=== PATIENT | female | born 1960 | race Two or more races ===

== ENCOUNTER → 2018-09-02 | Outpatient (CLI) | payer OTHER ==
[2018-09-02 09:18] LABS: Urine WBC None Seen /hpf (0 - 5)
[2018-09-02 10:03] LABS: Urine Bacteria NONE SEEN /hpf (None Seen); Urine Blood Negative /uL (Negative); Urine Specific Gravity 1.003 (1.001-1.035)
[2018-09-02 10:04] LABS: Basophils # (auto) 0 uL; Basophils % (auto) 1.1 % (0.0-2.0); Eosinophils # (auto) 0.1 uL; Eosinophils % (auto) 1.8 % (0.0-7.0); Hemoglobin 12.7 g/dL (12.2-16.2); Lymphocytes # (auto) 1.5 uL; Mean Corpuscular Hemoglobin 30.3 pg (28.0-32.0); Mean Corpuscular Hgb Conc. 33.4 g/dL (32.0-36.0); Mean Corpuscular Volume 90.8 fL (80.0-100.0); Monocytes # (auto) 0.2 uL; Monocytes % (auto) 6.2 % (0.0-12.0); Neutrophils # (auto) 1.7 uL; Neutrophils % (auto) 47.9 % (37.0-80.0); Nucleated Red Blood Cells % 0.1 %; Platelet Count (auto) 152 10^3/uL (140-450); Red Blood Cells 4.18 10^6/uL (4.0-5.20); Red Cell Distribution Width 14.3 % (11.8-14.3); White Blood Cell 3.5 10^3/uL (4.4-10.8)
[2018-09-02 10:43] LABS: Albumin 3.7 g/dL (3.4-5.0); Calcium 8.8 mg/dL (8.5-10.1); Potassium 3.7 mmol/L (3.5-5.1)
[2018-09-02 10:49] LABS: BUN/Creatinine Ratio 22.4; Bilirubin, Total 0.5 mg/dL (0.2-1.0); Total Protein 7.3 g/dL (6.4-8.2)
== END | disposition home or self-care (01) ==
LOC: LAB 09:04
PROVIDERS: ATTEND Internal Medicine Nephrology
DX: Z00.00 Encounter for general adult medical examination without abnormal findings (principal)
CPT/HCPCS: 36415; 80053; 80061; 81001; 84443; 85025

== ENCOUNTER → 2021-04-02 | Outpatient (CLI) | payer OTHER ==
[2021-04-02 10:06] LABS: Urine Bacteria NONE SEEN /hpf (None Seen); Urine Blood Negative /uL (Negative); Urine Mucus FEW (None Seen); Urine Specific Gravity 1.019 (1.001-1.035); Urine WBC <1 /hpf (0 - 5)
[2021-04-02 10:07] LABS: Basophils # (auto) 0 10 ^3/uL (0-0.2); Basophils % (auto) 0.7 % (0.0-2.0); Eosinophils # (auto) 0.1 10 ^3/uL (0-0.8); Eosinophils % (auto) 1.8 % (0.0-7.0); Hematocrit 37.4 % (36.0-46.0); Hemoglobin 12.5 g/dL (12.2-16.2); Lymphocytes # (auto) 1.4 10 ^3/uL (0.4-5.4); Mean Corpuscular Hemoglobin 30.6 pg (28.0-32.0); Mean Corpuscular Hgb Conc. 33.5 g/dL (32.0-36.0); Mean Corpuscular Volume 91.4 fL (80.0-100.0); Monocytes # (auto) 0.2 10 ^3/uL (0-1.3); Monocytes % (auto) 6.1 % (0.0-12.0); Neutrophils # (auto) 1.8 10 ^3/uL (1.6-8.6); Neutrophils % (auto) 51.4 % (37.0-80.0); Nucleated Red Blood Cells % 0.2 %; Red Blood Cells 4.09 10^6/uL (4.0-5.20); Red Cell Distribution Width 13.6 % (11.8-14.3); White Blood Cell 3.5 10^3/uL (4.4-10.8)
[2021-04-02 12:26] LABS: Albumin 3.8 g/dL (3.4-5.0); Potassium 4.1 mmol/L (3.5-5.1)
[2021-04-02 12:32] LABS: BUN/Creatinine Ratio 17.6; Bilirubin, Total 0.3 mg/dL (0.2-1.0); Total Protein 7.5 g/dL (6.4-8.2)
== END | disposition home or self-care (01) ==
LOC: LAB 08:30
PROVIDERS: ATTEND Internal Medicine
DX: I08.2 Rheumatic disorders of both aortic and tricuspid valves (principal); I11.9 Hypertensive heart disease without heart failure; E78.5 Hyperlipidemia, unspecified; M79.89 Other specified soft tissue disorders
CPT/HCPCS: 36415; 80053; 80061; 81001; 82270; 84443; 85025; 85379; 85652; 93306

== ENCOUNTER → 2021-04-19 | Outpatient (CLI) | payer OTHER ==
[2021-04-19 10:21] LABS: Basophils # (auto) 0 10 ^3/uL (0-0.2); Eosinophils # (auto) 0.1 10 ^3/uL (0-0.8); Eosinophils % (auto) 1.6 % (0.0-7.0); Hematocrit 35.6 % (36.0-46.0); Hemoglobin 12.1 g/dL (12.2-16.2); Lymphocytes # (auto) 1.6 10 ^3/uL (0.4-5.4); Lymphocytes % (auto) 40.8 % (10.0-50.0); Mean Corpuscular Hemoglobin 30.7 pg (28.0-32.0); Mean Corpuscular Hgb Conc. 33.9 g/dL (32.0-36.0); Mean Corpuscular Volume 90.4 fL (80.0-100.0); Monocytes # (auto) 0.2 10 ^3/uL (0-1.3); Monocytes % (auto) 5.8 % (0.0-12.0); Neutrophils % (auto) 50.8 % (37.0-80.0); Red Blood Cells 3.94 10^6/uL (4.0-5.20); Red Cell Distribution Width 13.7 % (11.8-14.3); White Blood Cell 3.9 10^3/uL (4.4-10.8)
== END | disposition home or self-care (01) ==
LOC: LAB 08:14
PROVIDERS: ATTEND Internal Medicine
DX: D72.819 Decreased white blood cell count, unspecified (principal)
CPT/HCPCS: 36415; 85025

== ENCOUNTER → 2021-05-03 | Outpatient (CLI) | payer OTHER | END | disposition home or self-care (01) | LOC: XY 07:35 | PROVIDERS: ATTEND Internal Medicine | DX: M89.8X9 Other specified disorders of bone, unspecified site (principal); Z85.118 Personal history of other malignant neoplasm of bronchus and lung | CPT/HCPCS: 78306; A9503 ==

== ENCOUNTER → 2021-08-28 | Outpatient (CLI) | payer OTHER ==
[2021-08-28 10:13] LABS: Basophils # (auto) 0 10 ^3/uL (0-0.2); Basophils % (auto) 0.7 % (0.0-2.0); Eosinophils # (auto) 0.1 10 ^3/uL (0-0.8); Eosinophils % (auto) 2.1 % (0.0-7.0); Hematocrit 35.6 % (36.0-46.0); Lymphocytes # (auto) 1.9 10 ^3/uL (0.4-5.4); Lymphocytes % (auto) 43.8 % (10.0-50.0); Mean Corpuscular Hemoglobin 30.9 pg (28.0-32.0); Mean Corpuscular Hgb Conc. 33.7 g/dL (32.0-36.0); Mean Corpuscular Volume 91.8 fL (80.0-100.0); Monocytes # (auto) 0.3 10 ^3/uL (0-1.3); Monocytes % (auto) 6.8 % (0.0-12.0); Neutrophils % (auto) 46.6 % (37.0-80.0); Nucleated Red Blood Cells % 0.2 %; Red Blood Cells 3.88 10^6/uL (4.0-5.20); Red Cell Distribution Width 13.7 % (11.8-14.3); White Blood Cell 4.2 10^3/uL (4.4-10.8)
== END | disposition home or self-care (01) ==
LOC: LAB 09:18
PROVIDERS: ATTEND Internal Medicine
DX: M81.0 Age-related osteoporosis without current pathological fracture (principal); D72.89 Other specified disorders of white blood cells
CPT/HCPCS: 36415; 85025; 85652

== ENCOUNTER → 2021-11-27 | Outpatient (CLI) | payer OTHER ==
[~2021-11-27] VITALS: Ht 154.9 cm; Wt 50.8 kg
[~2021-11-27] MED LIST: ADENOSINE 43 MG in GIVE UN-DILUTED 0 ML IV STA
[2021-11-27 09:22] VITALS: BP 117/71
== END | disposition home or self-care (01) ==
LOC: XY 08:12
PROVIDERS: ATTEND Internal Medicine
DX: R00.2 Palpitations (principal); R07.9 Chest pain, unspecified; R06.02 Shortness of breath; R55 Syncope and collapse
CPT/HCPCS: 78452; 93017; A9500; J0153

== ENCOUNTER → 2021-11-29 | Outpatient (CLI) | payer OTHER ==
[2021-11-29 08:58] LABS: Basophils # (auto) 0 10 ^3/uL (0-0.2); Basophils % (auto) 1.1 % (0.0-2.0); Eosinophils # (auto) 0.1 10 ^3/uL (0-0.8); Eosinophils % (auto) 2.7 % (0.0-7.0); Hematocrit 37.3 % (36.0-46.0); Hemoglobin 12.4 g/dL (12.2-16.2); Lymphocytes # (auto) 1.5 10 ^3/uL (0.4-5.4); Lymphocytes % (auto) 32.1 % (10.0-50.0); Mean Corpuscular Hemoglobin 30.1 pg (28.0-32.0); Mean Corpuscular Hgb Conc. 33.1 g/dL (32.0-36.0); Mean Corpuscular Volume 90.9 fL (80.0-100.0); Monocytes # (auto) 0.3 10 ^3/uL (0-1.3); Monocytes % (auto) 6.6 % (0.0-12.0); Neutrophils # (auto) 2.6 10 ^3/uL (1.6-8.6); Neutrophils % (auto) 57.5 % (37.0-80.0); Nucleated Red Blood Cells % 0.1 %; White Blood Cell 4.6 10^3/uL (4.4-10.8)
== END | disposition home or self-care (01) ==
LOC: LAB 08:47
PROVIDERS: ATTEND Internal Medicine
DX: M81.0 Age-related osteoporosis without current pathological fracture (principal); M79.644 Pain in right finger(s)
CPT/HCPCS: 36415; 84550; 85025; 86038; 86431

== ENCOUNTER → 2022-04-16 | Outpatient (CLI) | payer OTHER ==
[2022-04-16 09:42] LABS: Urine Bacteria NONE SEEN /hpf (None Seen); Urine Blood Negative /uL (Negative); Urine Specific Gravity 1.003 (1.001-1.035); Urine WBC <1 /hpf (0 - 5)
== END | disposition home or self-care (01) ==
LOC: LAB 09:23
PROVIDERS: ATTEND Internal Medicine
DX: R10.9 Unspecified abdominal pain (principal)
CPT/HCPCS: 81001

== ENCOUNTER 2022-10-09 12:35 | Day surgery (SDC) | payer OTHER ==
[2022-10-07 10:55] LABS: Basophils # (auto) 0 10 ^3/uL (0-0.2); Basophils % (auto) 0.8 % (0.0-2.0); Eosinophils # (auto) 0.1 10 ^3/uL (0-0.8); Eosinophils % (auto) 1.6 % (0.0-7.0); Hematocrit 36.9 % (36.0-46.0); Hemoglobin 12.2 g/dL (12.2-16.2); Lymphocytes # (auto) 1.7 10 ^3/uL (0.4-5.4); Lymphocytes % (auto) 38.8 % (10.0-50.0); Mean Corpuscular Hemoglobin 30.4 pg (28.0-32.0); Mean Corpuscular Hgb Conc. 33.1 g/dL (32.0-36.0); Mean Corpuscular Volume 91.7 fL (80.0-100.0); Monocytes # (auto) 0.3 10 ^3/uL (0-1.3); Monocytes % (auto) 6.6 % (0.0-12.0); Neutrophils # (auto) 2.3 10 ^3/uL (1.6-8.6); Neutrophils % (auto) 52.2 % (37.0-80.0); Nucleated Red Blood Cells % 0.1 %; Red Blood Cells 4.03 10^6/uL (4.0-5.20); Red Cell Distribution Width 14.4 % (11.8-14.3); White Blood Cell 4.4 10^3/uL (4.4-10.8)
[2022-10-07 11:18] LABS: INR 1.04 (0.9-1.15); Partial Thromboplastin Time 27.9 SEC (24.5-34.5); Prothrombin Time 10.9 sec (9.3-11.8)
[2022-10-07 12:25] LABS: Albumin 3.9 g/dL (3.4-5.0)
[2022-10-07 12:30] LABS: Bilirubin, Total 0.4 mg/dL (0.2-1.0); Total Protein 7.7 g/dL (6.4-8.2)
[~2022-10-09] VITALS: Ht 154.9 cm; Wt 52.2 kg
[2022-10-09 14:43] VITALS: O2SAT 98
[2022-10-09] MEDS ORDERED: LIDOCAINE VISCOUS 2% 15ML UD ONE (14:47)
[2022-10-09] MEDS ORDERED: SODIUM CHLORIDE LOCK 10 ML ONE (14:47)
[2022-10-09] MEDS ORDERED: diphenhdrAMINE HCL 50 MG/1 ML VL ONE (14:48)
[2022-10-09] MEDS ORDERED: fentaNYL CITRATE 100 MCG/2 ML VL ONE (14:48)
[2022-10-09] MEDS ORDERED: MIDAZOLAM HCL 5 MG/ML-1ML VIAL ONE (14:48)
[2022-10-09 15:02] VITALS: PULSE 70; RESP 11; TEMP 98.1; O2SAT 97
[2022-10-09 16:27] VITALS: BP 119/68; PULSE 67; RESP 19; O2SAT 67
== END 2022-10-09 16:40 | disposition home or self-care (01) ==
LOC: GI 12:35
PROVIDERS: ATTEND Internal Medicine Gastroenterology
DX: R10.84 Generalized abdominal pain (principal); R10.13 Epigastric pain; K29.90 Gastroduodenitis, unspecified, without bleeding; K29.50 Unspecified chronic gastritis without bleeding
CPT/HCPCS: 36415; 43239; 80053; 85025; 85610; 85730; J1200; J2250; J3010; J7030

== ENCOUNTER → 2022-10-16 | Day surgery (SDC) | payer OTHER ==
[2022-10-14 10:34] LABS: Basophils # (auto) 0 10 ^3/uL (0-0.2); Basophils % (auto) 0.9 % (0.0-2.0); Eosinophils # (auto) 0.1 10 ^3/uL (0-0.8); Eosinophils % (auto) 1.9 % (0.0-7.0); Hematocrit 36.3 % (36.0-46.0); Hemoglobin 12.1 g/dL (12.2-16.2); Lymphocytes # (auto) 1.9 10 ^3/uL (0.4-5.4); Lymphocytes % (auto) 41.5 % (10.0-50.0); Mean Corpuscular Hemoglobin 30.9 pg (28.0-32.0); Mean Corpuscular Hgb Conc. 33.5 g/dL (32.0-36.0); Mean Corpuscular Volume 92.2 fL (80.0-100.0); Monocytes # (auto) 0.3 10 ^3/uL (0-1.3); Monocytes % (auto) 7.2 % (0.0-12.0); Neutrophils # (auto) 2.2 10 ^3/uL (1.6-8.6); Neutrophils % (auto) 48.5 % (37.0-80.0); Nucleated Red Blood Cells % 0.1 %; Red Blood Cells 3.94 10^6/uL (4.0-5.20); White Blood Cell 4.6 10^3/uL (4.4-10.8)
[2022-10-14 10:37] LABS: INR 1.07 (0.9-1.15); Partial Thromboplastin Time 27.6 SEC (24.5-34.5); Prothrombin Time 11.2 sec (9.3-11.8)
[2022-10-14 11:01] LABS: Potassium 3.7 mmol/L (3.5-5.1)
[2022-10-14 11:12] LABS: Albumin 3.8 g/dL (3.4-5.0); BUN/Creatinine Ratio 7.8 (10.0-20.0); Bilirubin, Total 0.4 mg/dL (0.2-1.0); Calcium 8.9 mg/dL (8.5-10.1); Total Protein 7.5 g/dL (6.4-8.2)
[~2022-10-16] VITALS: Ht 154.9 cm; Wt 52.2 kg
[~2022-10-16] MED LIST changes: -ADENOSINE 43 MG in GIVE UN-DILUTED 0 ML IV STA; +SODIUM CHLORIDE LOCK 10 ML ONE
[2022-10-16 13:44] VITALS: O2SAT 99
[2022-10-16] MEDS: diphenhdrAMINE HCL 50 MG/1 ML VL ONE ×2 (13:51→14:01)
[2022-10-16] MEDS: fentaNYL CITRATE 100 MCG/2 ML VL ONE ×2 (13:51→14:02)
[2022-10-16] MEDS: MIDAZOLAM HCL 5 MG/ML-1ML VIAL ONE ×3 (13:51→14:06)
[2022-10-16 14:21] VITALS: TEMP 97.4; O2SAT 100
[2022-10-16 14:51] VITALS: BP 118/52; PULSE 58; RESP 19; O2SAT 98
== END | disposition home or self-care (01) ==
LOC: GI 12:33
PROVIDERS: ATTEND Internal Medicine Gastroenterology
DX: K62.5 Hemorrhage of anus and rectum (principal); K57.30 Diverticulosis of large intestine without perforation or abscess without bleeding; K64.0 First degree hemorrhoids; K63.5 Polyp of colon
CPT/HCPCS: 36415; 45385; 80053; 85025; 85610; 85730; 88305; J1200; J2250; J3010; J7030; 99152; 99153

== ENCOUNTER → 2023-02-27 | Outpatient (CLI) | payer OTHER ==
[2023-02-27 10:12] LABS: Basophils # (auto) 0 10 ^3/uL (0-0.2); Basophils % (auto) 0.9 % (0.0-2.0); Eosinophils # (auto) 0.1 10 ^3/uL (0-0.8); Eosinophils % (auto) 1.8 % (0.0-7.0); Hematocrit 36.6 % (36.0-46.0); Lymphocytes # (auto) 1.6 10 ^3/uL (0.4-5.4); Mean Corpuscular Hemoglobin 30.4 pg (28.0-32.0); Mean Corpuscular Hgb Conc. 32.9 g/dL (32.0-36.0); Mean Corpuscular Volume 92.4 fL (80.0-100.0); Monocytes # (auto) 0.3 10 ^3/uL (0-1.3); Monocytes % (auto) 7.3 % (0.0-12.0); Neutrophils # (auto) 2.2 10 ^3/uL (1.6-8.6); Red Blood Cells 3.96 10^6/uL (4.0-5.20); Red Cell Distribution Width 14.3 % (11.8-14.3); White Blood Cell 4.3 10^3/uL (4.4-10.8)
[2023-02-27 10:33] LABS: Cholesterol 139 mg/dL (< 200); Triglycerides 59 mg/dL (< 150)
[2023-02-27 10:34] LABS: LDL Cholesterol 77 mg/dL (< 100)
[2023-02-27 10:35] LABS: HDL Cholesterol 57 mg/dL (40-59)
== END | disposition home or self-care (01) ==
LOC: LAB 09:31
PROVIDERS: ATTEND Internal Medicine
DX: Z00.00 Encounter for general adult medical examination without abnormal findings (principal); D64.9 Anemia, unspecified; E78.5 Hyperlipidemia, unspecified
CPT/HCPCS: 36415; 80061; 85025

== ENCOUNTER 2023-11-10 08:37 | Emergency (ER) | payer OTHER ==
[~2023-11-10] VITALS: Ht 142.2 cm; Wt 126.0 kg
[2023-11-10 09:29] VITALS: BP 109/71; PULSE 74; RESP 20; TEMP 97; O2SAT 98
== END 2023-11-10 10:36 | disposition home or self-care (01) ==
LOC: ER 08:37
DX: A15.9 Respiratory tuberculosis unspecified (principal); Z20.1 Contact with and (suspected) exposure to tuberculosis
CPT/HCPCS: 71045

== ENCOUNTER 2023-11-16 10:38 | Emergency (ER) | payer OTHER ==
[~2023-11-16] VITALS: Ht 154.9 cm; Wt 50.6 kg
[2023-11-16 11:08] VITALS: BP 120/42; PULSE 82; RESP 14; TEMP 98.4; O2SAT 97
== END 2023-11-16 11:49 | disposition home or self-care (01) ==
LOC: ER 10:38
DX: R76.11 Nonspecific reaction to tuberculin skin test without active tuberculosis (principal); Z11.1 Encounter for screening for respiratory tuberculosis

== ENCOUNTER → 2023-12-29 | Outpatient (CLI) | payer OTHER | END | disposition home or self-care (01) | LOC: LAB 09:17 | PROVIDERS: ATTEND Internal Medicine Gastroenterology | DX: A04.8 Other specified bacterial intestinal infections (principal) | CPT/HCPCS: 83013 ==

== ENCOUNTER → 2024-01-06 | Outpatient (CLI) | payer OTHER | END | disposition home or self-care (01) | LOC: XYW 08:41 | PROVIDERS: ATTEND Internal Medicine | DX: R07.9 Chest pain, unspecified (principal) | CPT/HCPCS: 93306 ==

== ENCOUNTER → 2024-02-16 | Outpatient (CLI) | payer OTHER ==
[2024-02-16 09:26] LABS: Urine Bacteria None Seen /hpf (None Seen); Urine WBC None Seen /hpf (0 - 5)
[2024-02-16 09:45] LABS: Basophils # (auto) 0 10 ^3/uL (0-0.2); Basophils % (auto) 1.1 % (0.0-2.0); Eosinophils # (auto) 0.1 10 ^3/uL (0-0.8); Eosinophils % (auto) 1.5 % (0.0-7.0); Hematocrit 38.3 % (36.0-46.0); Lymphocytes # (auto) 1.5 10 ^3/uL (0.4-5.4); Lymphocytes % (auto) 43.4 % (10.0-50.0); Mean Corpuscular Hemoglobin 31.2 pg (28.0-32.0); Mean Corpuscular Hgb Conc. 33.8 g/dL (32.0-36.0); Mean Corpuscular Volume 92.2 fL (80.0-100.0); Monocytes # (auto) 0.2 10 ^3/uL (0-1.3); Monocytes % (auto) 6.4 % (0.0-12.0); Neutrophils # (auto) 1.7 10 ^3/uL (1.6-8.6); Neutrophils % (auto) 47.6 % (37.0-80.0); Nucleated Red Blood Cells % 0.1 %; Platelet Count (auto) 161 10^3/uL (140-450); Red Blood Cells 4.16 10^6/uL (4.0-5.20); White Blood Cell 3.5 10^3/uL (4.4-10.8)
[2024-02-16 10:18] LABS: Alanine Aminotransferase 20 U/L (7-40); Albumin 4.3 g/dL (3.2-4.8); Alkaline Phosphatase 80 U/L (46-116); Anion Gap 6 (5-15); Aspartate Aminotransferase 16 U/L (13-40); BUN/Creatinine Ratio 11.1 (10.0-20.0); Blood Urea Nitrogen 7 mg/dL (9-23); Calcium 9.9 mg/dL (8.7-10.4); Carbon Dioxide 28 mmol/L (20-31); Chloride 108 mmol/L (98-107); Glucose 91 mg/dL (74-106); LDL Cholesterol 72 mg/dL (< 100); Potassium 4.3 mmol/L (3.5-5.1); Sodium 142 mmol/L (136-145); Triglycerides 95 mg/dL (< 150)
[2024-02-16 10:19] LABS: Bilirubin, Total 0.6 mg/dL (0.2-1.0); Cholesterol 143 mg/dL (< 200); HDL Cholesterol 57 mg/dL (40-59); Total Protein 7.4 g/dL (5.7-8.2)
[2024-02-16 10:30] LABS: Folate (Folic Acid) 18.61 ng/mL (>5.38)
[2024-02-16 10:37] LABS: Creatinine, Urine 8.74 mg/dL (30.0-125.0)
[2024-02-16 10:52] LABS: Urine Blood Negative /uL (Negative); Urine Clarity Clear (Clear); Urine Color Colorless (Yellow); Urine Protein, UAD Negative (Negative); Urine Specific Gravity 1.001 (1.001-1.035); Urine Urobilinogen Normal (Negative)
[2024-02-16 11:02] LABS: Micro Albumin < 3.0 mg/L (<30.0)
== END | disposition home or self-care (01) ==
LOC: LAB 09:10
PROVIDERS: ATTEND Internal Medicine
DX: R73.03 Prediabetes (principal); K57.90 Diverticulosis of intestine, part unspecified, without perforation or abscess without bleeding; R91.8 Other nonspecific abnormal finding of lung field
CPT/HCPCS: 36415; 80053; 80061; 81001; 82043; 82306; 82570; 82607; 82746; 83036; 84443; 85025

== ENCOUNTER → 2024-02-27 | Outpatient (CLI) | payer OTHER ==
[~2024-02-27] VITALS: Ht 154.9 cm; Wt 49.9 kg
--- NOTE | 2024-02-27 11:00 | DVHCARD ---
Cardiology Stress Test [place] Treadmill Stress Test [place] Referring MD: MD Andrew Protocol: Rubén (with cardiolite) Reason for referral: Chest Pain Target heart Rate:@85%: 133 Percent MPHR: 157 METS: 10.10 Resting Heart rate: 64 Resting Blood Pressure: 98/63 Exercise Heart Rate: 130 Exercise Blood Pressure: 154/74 Reason for Termination of Test: Completion of Protocol Baseline EKG: NSR Stress EKG: Sinus tachycardia w/o discernible ischemic changes Functional Capacity: Good Normal Heart Rate Response: Adequate Blood Pressure Response: Hypertensive Clinical response: Non-ischemic Arrhythmia?: No Cardiolite Injected?: Yes ST-T Changes: Non/Minimal Probability of Inducible Ische: Perfusion result pending Comments: Uneventful Rubén protocol Date of Service: Feb 27, 2024 Billing Provider: CHASIDY MOTLEY Cardiology Common Codes: PROCEDURE ONLY Treadmill W/Cardiolite Nuclear: [id number], INTERP, RPT CHASIDY MOTLEY Feb 27, 2024 10:59
--- NOTE | 2024-02-27 11:53 | DVHSR ---
APPROVED REPORT Exam: Nuclear Stress Test BMI: 0 Stress Test Details HR Max Heart Rate (APMHR): 157 bpm Target HR (85% APMHR): 133 bpm BP ECG Stress ECG Conclusion Review of the myocardial perfusion images demonstrated homogeneous radiotracer uptake throughout the left ventricular myocardium both at rest and during stress. Left ventricular volumes are normal. Ej ection fraction is normal at and and is estimated at 72%. There is no transient ischemic dilatation. Impressions: 1. Low risk study with no evidence of ischemia or prior infarction. 2. Normal left ventricular systolic function. NM EXAM: Myocardial Perfusion REST/STRESS Imaging Protocol: Rest Tc-99m/Stress Tc-99m 1 day Resting Data Rest SPECT myocardial perfusion imaging was performed in supine position 60 minutes following the int ravenous injection of 11.4 mCi of Tc-99m Sestamibi. Time of rest injection: 0925 Date: 02/27/2024 Time of rest imagin Date: 02/27/2024 Administration Route: IV Administration Site: Right AC Exercise Stress At peak stress, the patient was injected intravenously with 34.7mCi of Tc-99m Sestamibi. Time of stress injection: 1100 Date: 02/27/2024 Time of stress imagin Date: 02/27/2024 Administration Route: IV Administration Site: Right AC Gated Stress SPECT was performed 30 minutes after stress injection. The images were gated to evaluate regional wall motion and calculate left ventricular ejection fracti on. Stress only was performed in the Supine position. Nuclear Conclusion ECG Findings: negative for ischemia Clinical Findings: negative for ischemia Nuclear Findings: negative for ischemia Exercise Capacity: normal Left Ventricular Function: normal Risk Study: low Review of the myocardial perfusion images demonstrated homogeneous radiotracer uptake throughout the left ventricular myocardium both at rest and during stress. Left ventricular volumes are normal. Ej ection fraction is normal at and and is estimated at 72%. There is no transient ischemic dilatation. Impressions: 1. Low risk study with no evidence of ischemia or prior infarction. 2. Normal left ventricular systolic function.
== END | disposition home or self-care (01) ==
LOC: XYW 08:58
PROVIDERS: ATTEND Internal Medicine
DX: R07.9 Chest pain, unspecified (principal); I10 Essential (primary) hypertension
CPT/HCPCS: 78452; 93017; A9500

== ENCOUNTER → 2024-04-20 | Outpatient (CLI) | payer OTHER ==
[2024-04-20 10:14] LABS: Basophils # (auto) 0 10 ^3/uL (0-0.2); Basophils % (auto) 0.7 % (0.0-2.0); Eosinophils # (auto) 0.1 10 ^3/uL (0-0.8); Eosinophils % (auto) 1.5 % (0.0-7.0); Hematocrit 38.8 % (36.0-46.0); Hemoglobin 12.7 g/dL (12.2-16.2); Lymphocytes # (auto) 1.7 10 ^3/uL (0.4-5.4); Lymphocytes % (auto) 42.7 % (10.0-50.0); Mean Corpuscular Hemoglobin 30.3 pg (28.0-32.0); Mean Corpuscular Hgb Conc. 32.8 g/dL (32.0-36.0); Mean Corpuscular Volume 92.5 fL (80.0-100.0); Monocytes # (auto) 0.3 10 ^3/uL (0-1.3); Monocytes % (auto) 6.6 % (0.0-12.0); Neutrophils # (auto) 1.9 10 ^3/uL (1.6-8.6); Neutrophils % (auto) 48.5 % (37.0-80.0); Nucleated Red Blood Cells % 0.2 %; Platelet Count (auto) 133 10^3/uL (140-450); Red Cell Distribution Width 14.1 % (11.8-14.3); White Blood Cell 3.9 10^3/uL (4.4-10.8)
[2024-04-20 11:10] LABS: Alanine Aminotransferase 26 U/L (7-40); Albumin 4.5 g/dL (3.2-4.8); Alkaline Phosphatase 80 U/L (46-116); Anion Gap 6 (5-15); Aspartate Aminotransferase 20 U/L (13-40); BUN/Creatinine Ratio 13.8 (10.0-20.0); Calcium 9.6 mg/dL (8.7-10.4); Carbon Dioxide 30 mmol/L (20-31); Chloride 104 mmol/L (98-107); Glucose 90 mg/dL (74-106); Potassium 4.2 mmol/L (3.5-5.1); Sodium 140 mmol/L (136-145)
[2024-04-20 11:11] LABS: Bilirubin, Total 0.5 mg/dL (0.2-1.0); Total Protein 7.2 g/dL (5.7-8.2)
[2024-04-20 11:16] LABS: Blood Urea Nitrogen 9 mg/dL (9-23)
== END | disposition home or self-care (01) ==
LOC: LAB 09:31
DX: Z22.7 Latent tuberculosis (principal)
CPT/HCPCS: 36415; 80053; 85025

== ENCOUNTER → 2024-05-17 | Outpatient (CLI) | payer OTHER ==
[2024-05-17 09:59] LABS: Basophils # (auto) 0 10 ^3/uL (0-0.2); Basophils % (auto) 1.1 % (0.0-2.0); Eosinophils # (auto) 0.1 10 ^3/uL (0-0.8); Eosinophils % (auto) 2.4 % (0.0-7.0); Hematocrit 39.1 % (36.0-46.0); Lymphocytes # (auto) 1.4 10 ^3/uL (0.4-5.4); Lymphocytes % (auto) 45.8 % (10.0-50.0); Mean Corpuscular Hemoglobin 30.5 pg (28.0-32.0); Mean Corpuscular Hgb Conc. 33.3 g/dL (32.0-36.0); Mean Corpuscular Volume 91.6 fL (80.0-100.0); Monocytes # (auto) 0.2 10 ^3/uL (0-1.3); Monocytes % (auto) 7.7 % (0.0-12.0); Neutrophils # (auto) 1.3 10 ^3/uL (1.6-8.6); Nucleated Red Blood Cells % 0.1 %; Platelet Count (auto) 142 10^3/uL (140-450); Red Blood Cells 4.27 10^6/uL (4.0-5.20); Red Cell Distribution Width 14.1 % (11.8-14.3)
== END | disposition home or self-care (01) ==
LOC: LAB 09:15
PROVIDERS: ATTEND Internal Medicine
DX: E55.9 Vitamin D deficiency, unspecified (principal); D72.819 Decreased white blood cell count, unspecified
CPT/HCPCS: 36415; 82306; 85025

== ENCOUNTER → 2024-05-19 | Outpatient (CLI) | payer OTHER ==
[2024-05-19 09:41] LABS: Basophils # (auto) 0 10 ^3/uL (0-0.2); Basophils % (auto) 0.4 % (0.0-2.0); Eosinophils # (auto) 0.1 10 ^3/uL (0-0.8); Eosinophils % (auto) 0.5 % (0.0-7.0); Hematocrit 37.5 % (36.0-46.0); Hemoglobin 12.6 g/dL (12.2-16.2); Lymphocytes # (auto) 3.2 10 ^3/uL (0.4-5.4); Lymphocytes % (auto) 27.5 % (10.0-50.0); Mean Corpuscular Hemoglobin 31.9 pg (28.0-32.0); Mean Corpuscular Hgb Conc. 33.7 g/dL (32.0-36.0); Mean Corpuscular Volume 94.7 fL (80.0-100.0); Monocytes # (auto) 0.2 10 ^3/uL (0-1.3); Monocytes % (auto) 2.1 % (0.0-12.0); Neutrophils # (auto) 8.1 10 ^3/uL (1.6-8.6); Neutrophils % (auto) 69.5 % (37.0-80.0); Platelet Count (auto) 384 10^3/uL (140-450); Red Blood Cells 3.96 10^6/uL (4.0-5.20); Red Cell Distribution Width 14.5 % (11.8-14.3); White Blood Cell 11.6 10^3/uL (4.4-10.8)
[2024-05-19 10:46] LABS: Alanine Aminotransferase 19 U/L (7-40); Albumin 4.6 g/dL (3.2-4.8); Alkaline Phosphatase 111 U/L (46-116); Anion Gap 8 (5-15); Aspartate Aminotransferase 15 U/L (13-40); BUN/Creatinine Ratio 15.2 (10.0-20.0); Blood Urea Nitrogen 12 mg/dL (9-23); Calcium 9.8 mg/dL (8.7-10.4); Carbon Dioxide 27 mmol/L (20-31); Chloride 106 mmol/L (98-107); Potassium 4.5 mmol/L (3.5-5.1); Sodium 141 mmol/L (136-145); Total Protein 7.3 g/dL (5.7-8.2)
[2024-05-19 10:55] LABS: Bilirubin, Total 0.2 mg/dL (0.2-1.0); Glucose 109 mg/dL (74-106)
== END | disposition home or self-care (01) ==
LOC: LAB 09:05
DX: Z22.7 Latent tuberculosis (principal)
CPT/HCPCS: 36415; 80053; 85025

== ENCOUNTER → 2024-06-03 | Outpatient (CLI) | payer OTHER ==
[2024-06-03 09:27] LABS: Basophils # (auto) 0 10 ^3/uL (0-0.2); Basophils % (auto) 1.2 % (0.0-2.0); Eosinophils # (auto) 0.1 10 ^3/uL (0-0.8); Eosinophils % (auto) 2.9 % (0.0-7.0); Hematocrit 37.2 % (36.0-46.0); Hemoglobin 12.9 g/dL (12.2-16.2); Lymphocytes # (auto) 1.4 10 ^3/uL (0.4-5.4); Lymphocytes % (auto) 45.8 % (10.0-50.0); Mean Corpuscular Hemoglobin 31.8 pg (28.0-32.0); Mean Corpuscular Hgb Conc. 34.7 g/dL (32.0-36.0); Mean Corpuscular Volume 91.6 fL (80.0-100.0); Monocytes # (auto) 0.2 10 ^3/uL (0-1.3); Neutrophils # (auto) 1.3 10 ^3/uL (1.6-8.6); Neutrophils % (auto) 43.1 % (37.0-80.0); Nucleated Red Blood Cells % 0.1 %; Platelet Count (auto) 138 10^3/uL (140-450); Red Blood Cells 4.06 10^6/uL (4.0-5.20); Red Cell Distribution Width 14.2 % (11.8-14.3); White Blood Cell 3.1 10^3/uL (4.4-10.8)
[2024-06-03 09:53] LABS: Erythrocyte Sedimentation Rate 2 mm/hr (0-20)
== END | disposition home or self-care (01) ==
LOC: LAB 09:01
PROVIDERS: ATTEND Internal Medicine
DX: I10 Essential (primary) hypertension (principal); R91.8 Other nonspecific abnormal finding of lung field; Z20.1 Contact with and (suspected) exposure to tuberculosis
CPT/HCPCS: 36415; 85025; 85652; 86141

== ENCOUNTER 2024-10-13 09:07 | Outpatient (CLI) | payer OTHER ==
[2024-10-13 10:21] LABS: Hematocrit 37.0 % (36.0-46.0); Hemoglobin 12.6 g/dL (12.2-16.2); Mean Corpuscular Hemoglobin 31.1 pg (28.0-32.0); Mean Corpuscular Volume 91.7 fL (80.0-100.0); Nucleated Red Blood Cells % 0.1 %
== END 2024-10-13 17:00 | disposition home or self-care (01) ==
LOC: LAB 09:07
PROVIDERS: ATTEND Internal Medicine
DX: D72.819 Decreased white blood cell count, unspecified (principal)
CPT/HCPCS: 36415; 85025

== ENCOUNTER → 2024-12-24 | Outpatient (CLI) | payer OTHER ==
[2024-12-24 10:49] LABS: Chloride 103 mmol/L (98-107); Potassium 3.8 mmol/L (3.5-5.1); Sodium 140 mmol/L (136-145)
[2024-12-24 10:50] LABS: Anion Gap 6 (5-15)
[2024-12-24 10:51] LABS: Calcium 9.5 mg/dL (8.7-10.4)
[2024-12-24 10:52] LABS: Carbon Dioxide 31 mmol/L (20-31)
[2024-12-24 10:55] LABS: Glucose 84 mg/dL (74-106)
[2024-12-24 10:56] LABS: BUN/Creatinine Ratio 16.9 (10.0-20.0); Blood Urea Nitrogen 10 mg/dL (9-23)
== END | disposition home or self-care (01) ==
LOC: LAB 09:07
PROVIDERS: ATTEND Internal Medicine
DX: Z01.812 Encounter for preprocedural laboratory examination (principal); R91.1 Solitary pulmonary nodule; R10.9 Unspecified abdominal pain
CPT/HCPCS: 36415; 80048

== ENCOUNTER 2025-01-17 09:51 | Outpatient (CLI) | payer OTHER ==
[2025-01-17 10:14] LABS: Hematocrit 35.9 % (36.0-46.0); Hemoglobin 12.3 g/dL (12.2-16.2); Mean Corpuscular Hemoglobin 31.3 pg (28.0-32.0); Mean Corpuscular Volume 91.4 fL (80.0-100.0); Nucleated Red Blood Cells % 0.1 %
[2025-01-17 10:41] LABS: Alanine Aminotransferase 29 U/L (7-40); Albumin 4.2 g/dL (3.2-4.8); Alkaline Phosphatase 81 U/L (46-116); Anion Gap 7 (5-15); BUN/Creatinine Ratio 15.6 (10.0-20.0); Blood Urea Nitrogen 10 mg/dL (9-23); Calcium 9.4 mg/dL (8.7-10.4); Chloride 103 mmol/L (98-107); Glucose 82 mg/dL (74-106); Potassium 4.2 mmol/L (3.5-5.1); Sodium 141 mmol/L (136-145); Total Protein 7.5 g/dL (5.7-8.2)
[2025-01-17 10:42] LABS: Bilirubin, Total 0.5 mg/dL (0.2-1.0)
[2025-01-17 10:46] LABS: Carbon Dioxide 31 mmol/L (20-31)
== END 2025-01-17 17:00 | disposition home or self-care (01) ==
LOC: LAB 09:51
PROVIDERS: ATTEND Internal Medicine
DX: I10 Essential (primary) hypertension (principal); E55.9 Vitamin D deficiency, unspecified; D72.819 Decreased white blood cell count, unspecified; D69.6 Thrombocytopenia, unspecified
CPT/HCPCS: 36415; 80053; 85025